=== PATIENT | female | born 1975 | race African-American/Black ===

== ENCOUNTER 2017-08-10 21:18 | Inpatient (IN) | payer OTHER ==
[~2017-08-10 21:18] MED LIST: HYDROCHLOROTHIAZIDE 25 MG TABLET (FP) PO SCH; LISINOPRIL 10 MG TABLET (FP) PO SCH
[2017-08-10 21:53] VITALS: BMI 25.8
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
[2017-08-10] MEDS ORDERED: MAGNESIUM HYDROX 2400MG/30ML ORAL SUSPENSION 30 ML CUP PO PRN (22:28)
[2017-08-10] MEDS ORDERED: NICOTINE POLACRILEX 2 MG GUM BC PRN (22:28)
[2017-08-10] MEDS ORDERED: LOPERAMIDE HCL 2 MG CAPSULE PO PRN (22:28)
[2017-08-10] MEDS ORDERED: MAGNESIUM CITRATE 300 ML BOTTLE PO PRN (22:28)
[2017-08-10] MEDS ORDERED: IBUPROFEN 400 MG TABLET (FP) PO PRN (22:28)
[2017-08-10] MEDS ORDERED: ACETAMINOPHEN 325 MG TABLET (FP) PO PRN (22:28)
[2017-08-10] MEDS ORDERED: MENTHOL/PHENOL 1 EACH UD MM PRN (22:28)
[2017-08-10] MEDS ORDERED: MAG HYDROX/AL HYDROX/SIMETH 30 ML UNIT-DOSE CUP PO PRN (22:28)
[2017-08-10] MEDS ORDERED: guaiFENesin/D-METHORPHAN HB 10 ML UNIT-DOSE CUPS PO PRN (22:28)
[2017-08-10] MEDS ORDERED: chlordiazePOXIDE HCL 25 MG CAPSULE PO PRN (22:28)
[2017-08-10] MEDS ORDERED: hydrOXYzine PAMOATE 50 MG CAPSULE (FP) PO PRN (22:28)
[2017-08-10] MEDS ORDERED: P-EPHED 60MG/TRIPROLIDI 2.5MG TABLET PO PRN (22:28)
[2017-08-11] MEDS ORDERED: INSULIN (NOVOLOG) ASPART 100 UNITS/ML 10ML VIAL SQ ONE ×2 (00:28→08:26)
[2017-08-11] MEDS ORDERED: INSULIN (NOVOLOG) ASPART 100 UNITS/ML 10ML VIAL ONE ×2 (01:19→17:22)
[2017-08-11] MEDS: chlordiazePOXIDE HCL 25 MG CAPSULE PO SCH ×5 (01:27→23:36)
[2017-08-11] MEDS: INSULIN DETEMIR 100 UNITS/ML MDV SQ SCH ×2 (01:32→23:35)
[2017-08-11] MEDS ORDERED: TRIAMTERENE AND HCTZ - 37.5 MG/25 MG CAPSULE PO ONE (01:38)
[2017-08-11] MEDS: HYDROCHLOROTHIAZIDE 25 MG TABLET (FP) PO SCH ×2 (01:39→11:25)
[2017-08-11] MEDS ORDERED: PATIENT'S OWN MEDICATION (NON-FORMULARY) (Insulin Aspart [Novolog] 10 UNIT) SQ SCH (08:00)
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
[2017-08-11] MEDS ORDERED: ABACAVIR/DOLUTEGRAVIR/LAMIVUDI (TRIUMEQ) TABLET -NF PO SCH (10:00)
[2017-08-11 10:54] LABS: ALBUMIN 2.3 g/dl (3.4-5.0); ALK PHOS 224 U/L (45-117); ANION GAP 8 (8-16); BILIRUBIN,TOTAL 0.3 mg/dL (0.2-1.0); CALCIUM 8.2 mg/dL (8.5-10.1); CO2 25 mmol/L (21-32); CREATININE 0.8 mg/dL (0.55-1.02); GLUCOSE,RANDOM 118 mg/dL (74-106); SGOT/AST 70 U/L (15-37); SGPT/ALT 63 U/L (12-78); TOT PROT 6.1 g/dl (6.4-8.2)
[2017-08-11] MEDS ORDERED: INSULIN (NOVOLOG) ASPART 100 UNITS/ML 10ML VIAL SQ SCH (11:00)
[2017-08-11] MEDS: valACYclovir HCL 500 MG TABLET (FP) PO SCH (11:25)
[2017-08-11] MEDS: PRENATAL VITAMINS W/ FOLIC ACID TABLET (FP) PO SCH (11:25)
[2017-08-11] MEDS: NICOTINE 21 MG/24 HOURS TOPICAL PATCH TD SCH (11:26)
[2017-08-11] MEDS: ASPIRIN COATED 81 MG TABLET.EC PO SCH (11:26)
[2017-08-11] MEDS: LISINOPRIL 10 MG TABLET (FP) PO SCH (11:26)
[2017-08-11 11:28] LABS: MCH 25.8 pg (25.7-33.7); MCHC 31.7 g/dl (32.0-36.0); MEAN CELL VOLUME 81.5 fl (80-96); MEAN PLT VOLUME 9.3 fl (7.5-11.1); PLATELET COUNT 165 K/MM3 (134-434); RDW 17.4 % (11.6-15.6)
--- NOTE | 2017-08-11 11:57 | PN ---
[facility] CIWA - CIWA Score Nausea/Vomitin-Mild Nausea/No Vomiting Muscle Tremors: 3 Anxiety: 4-Mod. Anxious/Guarded Agitation: 4-Moderately Restless Paroxysmal Sweats: 1-Minimal Palms Moist Orientation: 0-Oriented Tacttile Disturbances: 0-None Auditory Disturbances: 0-None Visual Disturbances: 0-None Headache: 0-None Present CIWA-Ar Total Score: 13 BHS Progress Note (SOAP) Subjective: tremor sweating restlessness irritable Objective: 08/11/17 11:53 Vital Signs Temperature 96.6 F L 08/11/17 06:00 Pulse Rate 75 08/11/17 06:00 Respiratory Rate 18 08/11/17 06:00 Blood Pressure 146/57 08/11/17 06:00 O2 Sat by Pulse Oximetry (%) Laboratory Last Values WBC 4.0 K/mm3 (4.0-10.0) 08/11/17 07:30 RBC 4.09 M/mm3 (3.60-5.2) 08/11/17 07:30 Hgb 10.6 GM/dL (10.7-15.3) L 08/11/17 07:30 Hct 33.4 % (32.4-45.2) 08/11/17 07:30 MCV 81.5 fl (80-96) 08/11/17 07:30 MCH 25.8 pg (25.7-33.7) 08/11/17 07:30 MCHC 31.7 g/dl (32.0-36.0) L 08/11/17 07:30 RDW 17.4 % (11.6-15.6) H D 08/11/17 07:30 Plt Count 165 K/MM3 (134-434) 08/11/17 07:30 MPV 9.3 fl (7.5-11.1) D 08/11/17 07:30 Sodium 138 mmol/L (136-145) 08/11/17 07:30 Potassium 4.0 mmol/L (3.5-5.1) 08/11/17 07:30 Chloride 105 mmol/L (98-107) 08/11/17 07:30 Carbon Dioxide 25 mmol/L (21-32) 08/11/17 07:30 Anion Gap 8 (8-16) 08/11/17 07:30 BUN 15 mg/dL (7-18) D 08/11/17 07:30 Creatinine 0.8 mg/dL (0.55-1.02) D 08/11/17 07:30 Creat Clearance w eGFR > 60 (>60) 08/11/17 07:30 POC Glucometer 41 UNITS (80-120) 08/11/17 10:41 Random Glucose 118 mg/dL (74-106) H D 08/11/17 07:30 Calcium 8.2 mg/dL (8.5-10.1) L 08/11/17 07:30 Total Bilirubin 0.3 mg/dL (0.2-1.0) D 08/11/17 07:30 AST 70 U/L (15-37) H D 08/11/17 07:30 ALT 63 U/L (12-78) D 08/11/17 07:30 Alkaline Phosphatase 224 U/L (45-117) H D 08/11/17 07:30 Total Protein 6.1 g/dl (6.4-8.2) L 08/11/17 07:30 Albumin 2.3 g/dl (3.4-5.0) L D 08/11/17 07:30 RPR Titer Nonreactive (NONREACTIVE) 08/11/17 07:30 lab noted 08/11/17 11:57 bgm 41 Assessment: 08/11/17 11:53 withdrawal sx 08/11/17 11:58 hypoglycemia Plan: continue detox discontinue routine Novolog 10 units tid begin bgm sliding scale
[2017-08-11] MEDS ORDERED: hydrOXYzine PAMOATE 50 MG CAPSULE (FP) PO PRN (12:01)
[2017-08-11 12:12] LABS: URINE APPEARANCE CLEAR; URINE BILIRUBIN NEGATIVE (NEGATIVE); URINE BLOOD 1+ (NEGATIVE); URINE COLOR LTYELLOW; URINE GLUCOSE (UA) 3+ (NEGATIVE); URINE KETONE NEGATIVE (NEGATIVE); URINE NITRITE NEGATIVE (NEGATIVE); URINE UROBILINOGEN NEGATIVE mg/dL (0.2-1.0)
[2017-08-11 12:13] LABS: URINE LEUK ESTERASE 2+ (NEGATIVE); URINE PROTEIN 3+ (NEGATIVE)
[2017-08-11 12:30] LABS: URINE BACTERIA RARE /hpf (NONE SEEN); URINE MUCUS RARE; URINE RBC <1 /hpf (0-3); URINE WBC 5 /hpf (3-5); YEAST FEW
[2017-08-11] MEDS: INSULIN SLIDING SCALE (NOVOLOG) 1 VIAL SQ SCH ×3 (14:22→23:36)
[2017-08-11 19:56] LABS: URINE LEUK ESTERASE 1+ (NEGATIVE)
[2017-08-11] MEDS ORDERED: traZODone HCL 150 MG TABLET PO SCH (22:00)
[2017-08-11] MEDS: THIAMINE HCL 100 MG TABLET (FP) PO SCH (23:35)
[2017-08-11] MEDS ORDERED: traZODone HCL 50 MG TABLET (FP) PO SCH (23:45)
[2017-08-12] MEDS: chlordiazePOXIDE HCL 25 MG CAPSULE PO SCH ×3 (06:25→17:44)
[2017-08-12] MEDS ORDERED: INSULIN (NOVOLOG) ASPART 100 UNITS/ML 10ML VIAL ONE ×3 (07:49→17:43)
[2017-08-12] MEDS ORDERED: DOLUTEGRAVIR SODIUM 50 MG TABLET PO SCH (10:00)
[2017-08-12] MEDS ORDERED: ABACAVIR SULFATE 300 MG TABLET PO SCH (10:00)
--- NOTE | 2017-08-12 11:23 | PN ---
[facility] CIWA - CIWA Score Nausea/Vomitin-No Nausea/No Vomiting Muscle Tremors: 3 Anxiety: 4-Mod. Anxious/Guarded Agitation: 3 Paroxysmal Sweats: 3 Orientation: 0-Oriented Tacttile Disturbances: 0-None Auditory Disturbances: 0-None Visual Disturbances: 0-None Headache: 0-None Present CIWA-Ar Total Score: 13 S Progress Note (SOAP) Subjective: sweats shakes body aches interrupted sleep Objective: 08/12/17 11:22 Vital Signs Temperature 97.7 F 08/12/17 10:48 Pulse Rate 91 H 08/12/17 10:48 Respiratory Rate 18 08/12/17 10:48 Blood Pressure 141/59 08/12/17 10:48 O2 Sat by Pulse Oximetry (%) Laboratory Tests 08/10/17 08/11/17 08/11/17 11:00 00:24 07:23 WBC RBC Hgb Hct MCV MCH MCHC RDW Plt Count MPV Sodium Potassium Chloride Carbon Dioxide Anion Gap BUN Creatinine Creat Clearance w eGFR POC Glucometer 419 125 Random Glucose Calcium Total Bilirubin AST ALT Alkaline Phosphatase Total Protein Albumin Urine Color Ltyellow Urine Appearance Clear Urine pH 8.0 D Ur Specific [place] 1.006 Urine Protein 3+ H D Urine Glucose (UA) 3+ H Urine Ketones Negative Urine Blood 1+ H Urine Nitrite Negative Urine Bilirubin Negative Urine Urobilinogen Negative Ur Leukocyte Esterase 1+ H Urine WBC (Auto) 5 Urine RBC (Auto) <1 Ur Epithelial Cells Rare Urine Bacteria Rare Urine Mucus Rare Urine Yeast Few RPR Titer 08/11/17 08/11/17 08/11/17 07:30 07:30 07:30 WBC 4.0 RBC 4.09 Hgb 10.6 L Hct 33.4 MCV 81.5 MCH 25.8 MCHC 31.7 L RDW 17.4 H D Plt Count 165 MPV 9.3 D Sodium 138 Potassium 4.0 Chloride 105 Carbon Dioxide 25 Anion Gap 8 BUN 15 D Creatinine 0.8 D Creat Clearance w eGFR > 60 POC Glucometer Random Glucose 118 H D Calcium 8.2 L Total Bilirubin 0.3 D AST 70 H D ALT 63 D Alkaline Phosphatase 224 H D Total Protein 6.1 L Albumin 2.3 L D Urine Color Urine Appearance Urine pH Ur Specific [place] Urine Protein Urine Glucose (UA) Urine Ketones Urine Blood Urine Nitrite Urine Bilirubin Urine Urobilinogen Ur Leukocyte Esterase Urine WBC (Auto) Urine RBC (Auto) Ur Epithelial Cells Urine Bacteria Urine Mucus Urine Yeast RPR Titer Nonreactive 08/11/17 08/11/17 08/11/17 10:41 12:06 16:27 WBC RBC Hgb Hct MCV MCH MCHC RDW Plt Count MPV Sodium Potassium Chloride Carbon Dioxide Anion Gap BUN Creatinine Creat Clearance w eGFR POC Glucometer 41 170 523 Random Glucose Calcium Total Bilirubin AST ALT Alkaline Phosphatase Total Protein Albumin Urine Color Urine Appearance Urine pH Ur Specific [place] Urine Protein Urine Glucose (UA) Urine Ketones Urine Blood Urine Nitrite Urine Bilirubin Urine Urobilinogen Ur Leukocyte Esterase Urine WBC (Auto) Urine RBC (Auto) Ur Epithelial Cells Urine Bacteria Urine Mucus Urine Yeast RPR Titer 08/11/17 08/12/17 21:48 06:42 WBC RBC Hgb Hct MCV MCH MCHC RDW Plt Count MPV Sodium Potassium Chloride Carbon Dioxide Anion Gap BUN Creatinine Creat Clearance w eGFR POC Glucometer 201 214 Random Glucose Calcium Total Bilirubin AST ALT Alkaline Phosphatase Total Protein Albumin Urine Color Urine Appearance Urine pH Ur Specific [place] Urine Protein Urine Glucose (UA) Urine Ketones Urine Blood Urine Nitrite Urine Bilirubin Urine Urobilinogen Ur Leukocyte Esterase Urine WBC (Auto) Urine RBC (Auto) Ur Epithelial Cells Urine Bacteria Urine Mucus Urine Yeast RPR Titer [id number] ambulating no acute distress Assessment: 08/12/17 11:24 continue detox increase fluids asmanex bid lidocaine patch Plan: continue detox increase fluids
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
[2017-08-12] MEDS ORDERED: traZODone HCL 50 MG TABLET (FP) PO SCH (12:20)
[2017-08-12] MEDS: INSULIN SLIDING SCALE (NOVOLOG) 1 VIAL SQ SCH ×3 (12:34→22:00)
[2017-08-12] MEDS: ASPIRIN COATED 81 MG TABLET.EC PO SCH (12:34)
[2017-08-12] MEDS: HYDROCHLOROTHIAZIDE 25 MG TABLET (FP) PO SCH (12:34)
[2017-08-12] MEDS: NICOTINE 21 MG/24 HOURS TOPICAL PATCH TD SCH (12:34)
[2017-08-12] MEDS: PRENATAL VITAMINS W/ FOLIC ACID TABLET (FP) PO SCH (12:35)
[2017-08-12] MEDS: LISINOPRIL 10 MG TABLET (FP) PO SCH (12:35)
[2017-08-12] MEDS: valACYclovir HCL 500 MG TABLET (FP) PO SCH (12:35)
[2017-08-12] MEDS: MOMETASONE FUROATE 220 MCG/IH INHALER IH SCH ×2 (12:36→22:53)
[2017-08-12] MEDS: ABACAVIR/DOLUTEGRAVIR/LAMIVUDI (TRIUMEQ) TABLET -NF PO SCH (12:36)
[2017-08-12] MEDS: FLUTICASONE PROPIONATE IH SCH (13:14)
[2017-08-12] MEDS ORDERED: LISINOPRIL 10 MG TABLET (FP) PO ONE (16:30)
[2017-08-12] MEDS ORDERED: HYDROCHLOROTHIAZIDE 25 MG TABLET (FP) PO ONE (16:30)
[2017-08-12] MEDS: THIAMINE HCL 100 MG TABLET (FP) PO SCH (22:13)
[2017-08-12] MEDS: chlordiazePOXIDE 5 MG CAPSULE PO SCH (22:13)
[2017-08-12] MEDS: INSULIN DETEMIR 100 UNITS/ML MDV SQ SCH (22:13)
--- NOTE | 2017-08-13 01:56 | EKG ---
Test Reason : Blood Pressure : / mmHG Vent. Rate : 091 BPM Atrial Rate : 091 BPM P-R Int : 132 ms QRS Dur : 090 ms QT Int : 380 ms P-R-T Axes : 073 075 072 degrees QTc Int : 467 ms NORMAL SINUS RHYTHM POSSIBLE LEFT ATRIAL ENLARGEMENT LEFT VENTRICULAR HYPERTROPHY ABNORMAL ECG NO PREVIOUS ECGS AVAILABLE Confirmed by JOHNNY JOHNSTON MD ([id number]) on 08/13/2017 1:56:09 AM Referred By: Confirmed By:JOHNNY JOHNSTON MD
[2017-08-13] MEDS: chlordiazePOXIDE 5 MG CAPSULE PO SCH ×2 (06:00→10:49)
[2017-08-13] MEDS: INSULIN SLIDING SCALE (NOVOLOG) 1 VIAL SQ SCH ×4 (07:30→23:55)
[2017-08-13] MEDS ORDERED: INSULIN (NOVOLOG) ASPART 100 UNITS/ML 10ML VIAL ONE ×2 (08:04→17:25)
[2017-08-13] MEDS: ABACAVIR/DOLUTEGRAVIR/LAMIVUDI (TRIUMEQ) TABLET -NF PO SCH (10:41)
[2017-08-13] MEDS: LISINOPRIL 10 MG TABLET (FP) PO SCH (10:42)
[2017-08-13] MEDS: ASPIRIN COATED 81 MG TABLET.EC PO SCH (10:42)
[2017-08-13] MEDS: valACYclovir HCL 500 MG TABLET (FP) PO SCH (10:42)
[2017-08-13] MEDS: HYDROCHLOROTHIAZIDE 25 MG TABLET (FP) PO SCH (10:43)
[2017-08-13] MEDS: PRENATAL VITAMINS W/ FOLIC ACID TABLET (FP) PO SCH (10:43)
[2017-08-13] MEDS: MOMETASONE FUROATE 220 MCG/IH INHALER IH SCH ×2 (10:43→22:08)
[2017-08-13] MEDS: NICOTINE 21 MG/24 HOURS TOPICAL PATCH TD SCH (10:49)
--- NOTE | 2017-08-13 11:34 | PN ---
[facility] Progress Note (SOAP) Subjective: sweats tried body aches Objective: 08/13/17 11:34 Vital Signs Temperature 97.7 F 08/13/17 10:31 Pulse Rate 89 08/13/17 10:31 Respiratory Rate 18 08/13/17 10:31 Blood Pressure 143/67 08/13/17 10:31 O2 Sat by Pulse Oximetry (%) aaox3 ambulating no acute distress Assessment: 08/13/17 11:35 withdrawal sx Plan: hold all sedating medication hold librium increase fluids motrin prn d/c in am
--- NOTE | 2017-08-13 19:30 | PN ---
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 Pt. self reports being easily angered and needing medications to assist her in calming down. Pt had an unwitness fall on the morning of 08/12/2017 and had medications held and discontinued due to unwitness fall and an increase risk of falling. Pt currently presents as alert and oriented X3 while observed ambulating effectively with her cane. Will order vistaril 25mg q4hr for agitation.
[2017-08-13] MEDS ORDERED: hydrOXYzine PAMOATE 25 MG CAPSULE (FP) PO PRN (19:34)
[2017-08-13] MEDS: INSULIN DETEMIR 100 UNITS/ML MDV SQ SCH (22:08)
[2017-08-13] MEDS: chlordiazePOXIDE HCL 10 MG CAPSULE PO SCH (22:08)
[2017-08-13] MEDS: THIAMINE HCL 100 MG TABLET (FP) PO SCH (22:08)
[2017-08-14] MEDS: chlordiazePOXIDE HCL 10 MG CAPSULE PO SCH (06:00)
[2017-08-14] MEDS: INSULIN SLIDING SCALE (NOVOLOG) 1 VIAL SQ SCH ×2 (07:45→08:17)
[2017-08-14] MEDS ORDERED: INSULIN (NOVOLOG) ASPART 100 UNITS/ML 10ML VIAL ONE ×2 (08:06→08:59)
--- NOTE | 2017-08-14 09:00 | DS ---
[facility] Detox Discharge Summary Admission Date: 08/10/17 Discharge Date: 08/14/17 - History Present History: Alcohol Dependence, Cocaine Dependence - Physical Exam Results Vital Signs: Vital Signs Temperature 98.3 F 08/14/17 06:16 Pulse Rate 93 H 08/14/17 06:16 Respiratory Rate 08/14/17 06:16 Blood Pressure 150/80 08/14/17 06:16 O2 Sat by Pulse Oximetry (%) - Treatment Hospital Course: Detox Protocol Followed, Detoxed Safely, Responded well, Discharged Condition Good, Rehab Referral Accepted - Diagnosis (1) Alcohol dependence with uncomplicated withdrawal Current Visit: Yes Status: Chronic (2) Cannabis abuse, uncomplicated Current Visit: Yes Status: Chronic (3) Cocaine dependence, uncomplicated Current Visit: Yes Status: Chronic (4) Substance induced mood disorder Current Visit: Yes Status: Acute (5) Substance-induced sleep disorder Current Visit: Yes Status: Acute (6) Anemia Current Visit: Yes Status: Chronic Qualifiers: Anemia type: iron deficiency Iron deficiency anemia type: unspecified iron deficiency Qualified Code(s): D50.9 - Iron deficiency anemia, unspecified (7) Asthma Current Visit: Yes Status: Chronic Qualifiers: Asthma severity: mild Asthma persistence: intermittent Asthma complication type: uncomplicated Qualified Code(s): J45.20 - Mild intermittent asthma, uncomplicated (8) Diabetes Current Visit: Yes Status: Chronic Qualifiers: Diabetes mellitus type: type 2 Diabetes mellitus complication status: without complication (9) HIV (human immunodeficiency virus infection) Current Visit: Yes Status: Chronic (10) HTN (hypertension) Current Visit: Yes Status: Chronic Qualifiers: Hypertension type: essential hypertension Qualified Code(s): I10 - Essential (primary) hypertension (11) Herpes Current Visit: Yes Status: Chronic (12) Mood disorder Current Visit: Yes Status: Chronic (13) Nicotine dependence Current Visit: Yes Status: Chronic Qualifiers: Nicotine product type: cigarettes Substance use status: uncomplicated Qualified Code(s): F17.210 - Nicotine dependence, cigarettes, uncomplicated (14) CVA (cerebral vascular accident) Current Visit: Yes Status: Resolved Qualifiers: CVA mechanism: unspecified Qualified Code(s): I63.9 - Cerebral infarction, unspecified - AMA Did Patient Leave Against Medical Advice: No
[2017-08-14] MEDS: MOMETASONE FUROATE 220 MCG/IH INHALER IH SCH (10:22)
[2017-08-14] MEDS: ASPIRIN COATED 81 MG TABLET.EC PO SCH (10:23)
[2017-08-14] MEDS: valACYclovir HCL 500 MG TABLET (FP) PO SCH (10:23)
[2017-08-14] MEDS: ABACAVIR/DOLUTEGRAVIR/LAMIVUDI (TRIUMEQ) TABLET -NF PO SCH (10:24)
[2017-08-14 11:12] VITALS: BP 110/79; PULSE 79; TEMP 97.7
[2017-08-15 10:14] LABS: HCV LOG 10 7.169 (.); HCV RNA IU/ML 14767000 IU/mL (.)
== END 2017-08-14 10:30 | disposition home or self-care (01) | DRG 774 ==
LOC: YASAS 21:18 → Y6N 22:20
PROVIDERS: ADMIT Internal Medicine; ATTEND Internal Medicine
PROC: HZ2ZZZZ Detoxification Services for Substance Abuse Treatment (ICD-10-PCS; principal; 2017-08-10)
DX: F10.230 Alcohol dependence with withdrawal, uncomplicated (principal); F14.20 Cocaine dependence, uncomplicated; F12.10 Cannabis abuse, uncomplicated; F17.210 Nicotine dependence, cigarettes, uncomplicated; F19.24 Other psychoactive substance dependence with psychoactive substance-induced mood disorder; F19.282 Other psychoactive substance dependence with psychoactive substance-induced sleep disorder; F39 Unspecified mood [affective] disorder; D50.9 Iron deficiency anemia, unspecified; J45.20 Mild intermittent asthma, uncomplicated; E11.65 Type 2 diabetes mellitus with hyperglycemia; R01.1 Cardiac murmur, unspecified; Z21 Asymptomatic human immunodeficiency virus [HIV] infection status; I10 Essential (primary) hypertension; A60.00 Herpesviral infection of urogenital system, unspecified; I25.2 Old myocardial infarction; Z87.42 Personal history of other diseases of the female genital tract; Z86.73 Personal history of transient ischemic attack (TIA), and cerebral infarction without residual deficits; Z86.69 Personal history of other diseases of the nervous system and sense organs; Z79.4 Long term (current) use of insulin; W18.30XA Fall on same level, unspecified, initial encounter; Y93.9 Activity, unspecified; Y92.232 Corridor of hospital as the place of occurrence of the external cause
CPT/HCPCS: 36415; 80053; 81003; 81015; 85027; 86593; 86803; 87522; 93005; 93010

== ENCOUNTER 2017-08-12 12:59 | Emergency (ER) | payer OTHER ==
[2017-08-12 13:08] VITALS: BMI 25.8
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
[2017-08-12 14:43] VITALS: BP 149/79; PULSE 79; TEMP 97.9
--- NOTE | 2017-08-13 01:19 | EKG ---
Test Reason : Blood Pressure : / mmHG Vent. Rate : 076 BPM Atrial Rate : 076 BPM P-R Int : 128 ms QRS Dur : 094 ms QT Int : 402 ms P-R-T Axes : 081 082 078 degrees QTc Int : 452 ms NORMAL SINUS RHYTHM POSSIBLE LEFT ATRIAL ENLARGEMENT LEFT VENTRICULAR HYPERTROPHY ABNORMAL ECG WHEN COMPARED WITH ECG OF 11-AUG-2017 00:03, NO SIGNIFICANT CHANGE WAS FOUND Confirmed by JOHNNY JOHNSTON MD ([id number]) on 08/13/2017 1:19:06 AM Referred By: Confirmed By:JOHNNY JOHNSTON MD
== END 2017-08-12 14:43 | disposition short-term general hospital (02) ==
LOC: JER 12:59
DX: Z04.3 Encounter for examination and observation following other accident (principal); W18.39XA Other fall on same level, initial encounter; Y93.89 Activity, other specified; Y92.238 Other place in hospital as the place of occurrence of the external cause; Y99.9 Unspecified external cause status; I25.2 Old myocardial infarction; Z86.73 Personal history of transient ischemic attack (TIA), and cerebral infarction without residual deficits; Z21 Asymptomatic human immunodeficiency virus [HIV] infection status; I10 Essential (primary) hypertension; D64.9 Anemia, unspecified; E11.9 Type 2 diabetes mellitus without complications; Z79.4 Long term (current) use of insulin; J45.909 Unspecified asthma, uncomplicated
CPT/HCPCS: 93005; 93010; 99284-25